=== PATIENT | male | born 1970 | race Caucasian/White ===

== ENCOUNTER 2022-08-01 10:24 | Inpatient (IN) ==
[2022-08-01] MEDS ORDERED: 0.9 % SODIUM CHLORIDE 1,000 ML IV ONE ×2 (10:47→12:27)
[2022-08-01] MEDS ORDERED: ONDANSETRON 4 MG/2 ML VIAL IV ONE (10:51)
[2022-08-01] MEDS ORDERED: morphine 4 MG/ML VIAL IV ONE (10:51)
--- NOTE | 2022-08-01 10:51 | Emergency Department Note ---
Wound/Laceration HIP General Chief Complaint: Wound/Laceration Stated Complaint: Pain and wounds on leg Time Seen by Provider: 08/01/22 10:36 Source: patient Mode of arrival: wheelchair Limitations: no limitations History of Present Illness HPI Narrative: Narrative: This is a 51-year-old male who is noncompliant with his diabetes with a history of lower extremity wounds presenting to the emergency department with complaints of a new wounds to his lower extremities. He reports that these wounds started about 3 weeks ago and have been getting worse. He has a painful swollen left second toe that has been draining some bloody purulence starting yesterday. There is also some ulcers with eschars on his right lower leg. He reports that he is been feeling hot and sometimes has a little sweats but he denies chills no nausea or vomiting. He does take metformin but does not take his blood sugar very often any reports he can he remember the last time he took it. He denies headache, chest pain, shortness of breath, abdominal pain, nausea vomiting diarrhea dysuria urinary frequency or urgency. Related Data Previous Rx's Medication Instructions Recorded metformin 500 mg tablet 500 mg PO QDAY #30 tabs 01/20/22 Allergies Allergy/AdvReac Type Severity Reaction Status Date / Time colchicine AdvReac Abdominal Verified 08/01/22 10:29 Pain Review of Systems ROS ROS Narrative: Narrative: All systems ED: reviewed and negative except as stated. [facility] Narrative Patient History Narrative: Narrative: Medical/Surgical/Family History All Active Problems (Updated 08/01/22 @ 22:17 by Eze Reyes PA-C) Methamphetamine abuse (Acute) Uncontrolled type 2 diabetes mellitus (Acute) Diabetic foot ulcer associated with type 2 diabetes mellitus (Acute) Osteomyelitis of toe of left foot (Acute) Acute gout of left wrist (Acute) Perineal cyst in male (Acute) Infected sebaceous cyst (Acute) Abscess of skin or subcutaneous tissue (Acute) Sepsis (Acute) Cellulitis of neck (Acute) Hyperosmolar hyperglycemic state (HHS) (Acute) Cellulitis of neck (Acute) Morbid obesity (Acute) Gout attack (Acute) Sleep apnea (Chronic) Polyarticular gout (Chronic) Medical History Abdominal pain Gout attack Gout of right elbow Gout of right elbow Gout of right knee Gout of right knee Polyarticular gout Sleep apnea Tophi Ulcer Wrist pain Surgical History History of knee surgery Right x 3 History of laparoscopic cholecystectomy 07/31/2018 Family History Grandfather , Age 60 Esophageal cancer Grandfather Cancer Heart disease Father COPD (chronic obstructive pulmonary disease) Father , Age 66 Congestive heart failure Social History Smoking Status: Current every day smoker Alcohol Intake Frequency: does not drink Substance Use: does not use Exam Narrative Narrative: Narrative: General: Alert, in no acute distress Head: No trauma normocephalic Eyes: PERRLA, EOMs intact no scleral icterus or scleral injection Neck: Full range of motion, no midline tenderness ENT: Moist mucous membranes, uvula is midline. No sign of peritonsillar abscess or Desirae's angina. Cardiovascular: Regular rate and rhythm no murmur Respiratory: Clear to auscultation bilaterally. No rhonchi rales or wheezes, no respiratory distress Abdomen pelvis: Abdomen is soft and nontender to palpation. There is no guarding no rebound tenderness. Negative Torres sign. No tenderness over McBurney's point. Neuro: Patient is alert and oriented x3 Psych: Normal affect, normal mood Right lower extremity there are ulcers with eschars approximately 4 cm x 2 cm each. There is minimal to no surrounding erythema. They are tender to touch. No purulence. Left lower extremity: The left second digit is a bulbous red and swollen. There was some purulence that drained from the lateral aspect it is tender to the touch. General Limitations: no limitations Course Vital Signs Vital signs: Vital Signs Temperature 98.1 F 08/01/22 10:27 Pulse Rate 112 H 08/01/22 10:27 Respiratory Rate 18 08/01/22 10:27 Blood Pressure 138/81 08/01/22 10:27 Pulse Oximetry (%) 100 08/01/22 10:27 Oxygen Delivery Method Room Air 08/01/22 10:27 Temperature 97.7 F 08/01/22 19:18 Pulse Rate 83 08/01/22 19:18 Respiratory Rate 18 08/01/22 19:18 Blood Pressure 112/74 08/01/22 19:18 Pulse Oximetry (%) 99 08/01/22 19:18 Oxygen Delivery Method Room Air 08/01/22 19:18 MDM MDM Narrative Medical decision making narrative: Narrative: Differential diagnosis: Cellulitis, diabetic foot ulcer, osteomyelitis, sepsis Independent lab ordered and reviewed by me: CBC no leukocytosis or anemia. There is mild elevated number of granulocytes Chem-8 pseudohyponatremia with a glucose of 676 Hepatic panel reviewed Venous blood gas mildly acidotic Lactic acid 3.9 Blood cultures x2 pending Procalcitonin is 0.10 Left foot x-ray complete to evaluate for osteomyelitis shows a complete erosion of the distal second phalanx consistent with osteomyelitis on my read. The radiologist confirmed this and also noted some gas over the first metatarsal head. There is a superficial ulcer over this area on exam. Medications ordered: 1 L of normal saline for hyperglycemia 4 mg IV morphine for pain control 4 mg IV ondansetron for prophylactic nausea control Liter #2 of normal saline for hyperglycemia and possible sepsis ordered I have ordered vancomycin as well as ceftriaxone for osteomyelitis of the left second toe. Disposition decision making I spoke with Dr. Emile Perez the machine tool designer who agrees to consult with the patient with most likely surgery remove that osteolytic toe. I then spoke with the Dr. Courtney the hospitalist who agreed to admit the patient for further evaluation and treatment of osteomyelitis. Lab Data 08/01/22 11:24 Labs: Lab Results 08/01/22 08/01/22 08/01/22 Range/Units 11:02 11:21 11:24 WBC 10.4 (4.5-11.0) K/mcL RBC 5.24 (4.63-6.08) M/mcL Hgb 14.8 (13.7-17.5) g/dL Hct 43.8 (40.1-51.0) % POC Hct 45.0 (41-55) MCV 83.6 (80.0-100.0) fL MCH 28.2 (26.0-34.0) pg MCHC 33.8 (31.0-36.0) g/dL RDW 12.7 (11.5-14.5) % Plt Count 295 (140-440) K/mcL MPV 10.4 (8.8-12.5) fL Immature Gran % (Auto) 2.0 H (0.0-0.5) % Neut % (Auto) 65.3 (38.0-78.0) % Lymph % (Auto) 19.7 (15.5-49.0) % [place] % (Auto) 8.8 (1.0-12.0) % Eos % (Auto) 3.2 (0.0-7.0) % Baso % (Auto) 1.0 (0.0-2.0) % Lymph # (Auto) 2.06 (1.50-4.80) K/mcL [place] # (Auto) 0.92 H (0.10-0.90) K/mcL Eos # (Auto) 0.33 (0.00-0.70) K/mcL Baso # (Auto) 0.10 (0.00-0.30) K/mcL Immature Gran # 0.21 H (0.00-0.05) K/mcl Absolute Neutrophils 6.82 (1.80-8.00) K/mcL PT (11.9-14.5) sec INR (0.9-1.1) ABG Methemoglobin 0.3 L (0.4-1.5) % VBG pH 7.34 (7.32-7.42) U VBG pCO2 47.2 (41.0-51.0) mmHg VBG pO2 27.5 (25.0-40.0) mmHg VBG HCO3 24.7 (24.0-28.0) mmol/L VBG Total CO2 26.1 (25.0-29.0) mmol/L VBG O2 Saturation 50.9 (40.0-70.0) % VBG Base Excess -2 (-2-3) VBG Lactic Acid (0.5-2.0) mmol/L Carboxyhemoglobin 8.0 H (0.0-1.5) % THgb Total Hemoglobin 16.0 (13.5-16.5) gm/Dl POC Sodium 128 L (133-145) POC Potassium 4.8 (3.3-5.1) POC Chloride 93 L (96-108) POC Total CO2 23.0 (22-30) POC BUN 18 (6-20) POC Creatinine 0.7 (0.6-1.2) POC Glucose 676 H* (70-105) POC WB Ioniz Calcium 1.08 L (1.16-1.32) Total Bilirubin (0.1-1.0) mg/dL Direct Bilirubin (0-0.3) mg/dL AST (<40) U/L ALT (<40) U/L Alkaline Phosphatase (39-117) U/L Total Protein (5.9-8.4) gm/dL Albumin (3.2-5.2) gm/dL Globulin (2.2-3.7) gm/dL Beta-Hydroxybutyrate (<0.27) mmol/L Procalcitonin (<0.10) ng/mL Urine Color Urine Appearance (Clear) Urine pH (5.0-9.0) Ur Specific [place] (1.000-1.035) Urine Protein (Negative) mg/dL Urine Glucose (UA) (Negative) mg/dL Urine Ketones (Negative) mg/dL Urine Occult Blood (Negative) [place]ari[place]/mcL Urine Nitrate (Negative) Urine Bilirubin (Negative) mg/dL Urine Urobilinogen mg/dL Ur Leukocyte Esterase (Negative) /uL Urine RBC (0-3) /hpf Urine WBC (0-4) /hpf Ur Squamous Epith Cells (0-4) /hpf Urine Bacteria (0) /hpf Urine Mucus (None) /hpf Ur Culture Indicated? Urine Opiates Screen Ur Oxycodone Screen U Oxycod/Oxymor Confirm Urine Methadone Screen Ur Methadone Confirm Ur Barbiturates Screen Ur Barbiturate Confirm Ur Phencyclidine Scrn Urine PCP Confirm Ur Amphetamines Screen U Benzodiazepines Scrn Ur Benzodiazepine, Qnt Urine Cocaine Screen Urine Cocaine Confirm U Cannabinoids Confirm U Marijuana (THC) Screen 08/01/22 08/01/22 08/01/22 Range/Units 11:24 11:24 11:24 WBC (4.5-11.0) K/mcL RBC (4.63-6.08) M/mcL Hgb (13.7-17.5) g/dL Hct (40.1-51.0) % POC Hct (41-55) MCV (80.0-100.0) fL MCH (26.0-34.0) pg MCHC (31.0-36.0) g/dL RDW (11.5-14.5) % Plt Count (140-440) K/mcL MPV (8.8-12.5) fL Immature Gran % (Auto) (0.0-0.5) % Neut % (Auto) (38.0-78.0) % Lymph % (Auto) (15.5-49.0) % [place] % (Auto) (1.0-12.0) % Eos % (Auto) (0.0-7.0) % Baso % (Auto) (0.0-2.0) % Lymph # (Auto) (1.50-4.80) K/mcL [place] # (Auto) (0.10-0.90) K/mcL Eos # (Auto) (0.00-0.70) K/mcL Baso # (Auto) (0.00-0.30) K/mcL Immature Gran # (0.00-0.05) K/mcl Absolute Neutrophils (1.80-8.00) K/mcL PT (11.9-14.5) sec INR (0.9-1.1) ABG Methemoglobin (0.4-1.5) % VBG pH (7.32-7.42) U VBG pCO2 (41.0-51.0) mmHg VBG pO2 (25.0-40.0) mmHg VBG HCO3 (24.0-28.0) mmol/L VBG Total CO2 (25.0-29.0) mmol/L VBG O2 Saturation (40.0-70.0) % VBG Base Excess (-2-3) VBG Lactic Acid 3.9 H* (0.5-2.0) mmol/L Carboxyhemoglobin (0.0-1.5) % THgb Total Hemoglobin (13.5-16.5) gm/Dl POC Sodium (133-145) POC Potassium (3.3-5.1) POC Chloride (96-108) POC Total CO2 (22-30) POC BUN (6-20) POC Creatinine (0.6-1.2) POC Glucose (70-105) POC WB Ioniz Calcium (1.16-1.32) Total Bilirubin 0.5 (0.1-1.0) mg/dL Direct Bilirubin < 0.2 (0-0.3) mg/dL AST 14 (<40) U/L ALT 17 (<40) U/L Alkaline Phosphatase 113 (39-117) U/L Total Protein 7.4 (5.9-8.4) gm/dL Albumin 3.5 (3.2-5.2) gm/dL Globulin 3.9 H (2.2-3.7) gm/dL Beta-Hydroxybutyrate (<0.27) mmol/L Procalcitonin 0.10 H (<0.10) ng/mL Urine Color Urine Appearance (Clear) Urine pH (5.0-9.0) Ur Specific [place] (1.000-1.035) Urine Protein (Negative) mg/dL Urine Glucose (UA) (Negative) mg/dL Urine Ketones (Negative) mg/dL Urine Occult Blood (Negative) [place]/mcL Urine Nitrate (Negative) Urine Bilirubin (Negative) mg/dL Urine Urobilinogen mg/dL Ur Leukocyte Esterase (Negative) /uL Urine RBC (0-3) /hpf Urine WBC (0-4) /hpf Ur Squamous Epith Cells (0-4) /hpf Urine Bacteria (0) /hpf Urine Mucus (None) /hpf Ur Culture Indicated? Urine Opiates Screen Ur Oxycodone Screen U Oxycod/Oxymor Confirm Urine Methadone Screen Ur Methadone Confirm Ur Barbiturates Screen Ur Barbiturate Confirm Ur Phencyclidine Scrn Urine PCP Confirm Ur Amphetamines Screen U Benzodiazepines Scrn Ur Benzodiazepine, Qnt Urine Cocaine Screen Urine Cocaine Confirm U Cannabinoids Confirm U Marijuana (THC) Screen 08/01/22 08/01/22 08/01/22 Range/Units 11:24 11:24 15:00 WBC (4.5-11.0) K/mcL RBC (4.63-6.08) M/mcL Hgb (13.7-17.5) g/dL Hct (40.1-51.0) % POC Hct (41-55) MCV (80.0-100.0) fL MCH (26.0-34.0) pg MCHC (31.0-36.0) g/dL RDW (11.5-14.5) % Plt Count (140-440) K/mcL MPV (8.8-12.5) fL Immature Gran % (Auto) (0.0-0.5) % Neut % (Auto) (38.0-78.0) % Lymph % (Auto) (15.5-49.0) % [place] % (Auto) (1.0-12.0) % Eos % (Auto) (0.0-7.0) % Baso % (Auto) (0.0-2.0) % Lymph # (Auto) (1.50-4.80) K/mcL [place] # (Auto) (0.10-0.90) K/mcL Eos # (Auto) (0.00-0.70) K/mcL Baso # (Auto) (0.00-0.30) K/mcL Immature Gran # (0.00-0.05) K/mcl Absolute Neutrophils (1.80-8.00) K/mcL PT 13.3 (11.9-14.5) sec INR 1.0 (0.9-1.1) ABG Methemoglobin (0.4-1.5) % VBG pH (7.32-7.42) U VBG pCO2 (41.0-51.0) mmHg VBG pO2 (25.0-40.0) mmHg VBG HCO3 (24.0-28.0) mmol/L VBG Total CO2 (25.0-29.0) mmol/L VBG O2 Saturation (40.0-70.0) % VBG Base Excess (-2-3) VBG Lactic Acid (0.5-2.0) mmol/L Carboxyhemoglobin (0.0-1.5) % THgb Total Hemoglobin (13.5-16.5) gm/Dl POC Sodium (133-145) POC Potassium (3.3-5.1) POC Chloride (96-108) POC Total CO2 (22-30) POC BUN (6-20) POC Creatinine (0.6-1.2) POC Glucose (70-105) POC WB Ioniz Calcium (1.16-1.32) Total Bilirubin (0.1-1.0) mg/dL Direct Bilirubin (0-0.3) mg/dL AST (<40) U/L ALT (<40) U/L Alkaline Phosphatase (39-117) U/L Total Protein (5.9-8.4) gm/dL Albumin (3.2-5.2) gm/dL Globulin (2.2-3.7) gm/dL Beta-Hydroxybutyrate 0.13 (<0.27) mmol/L Procalcitonin (<0.10) ng/mL Urine Color Lt. yellow Urine Appearance Clear (Clear) Urine pH 5.5 (5.0-9.0) Ur Specific [place] 1.010 (1.000-1.035) Urine Protein Negative (Negative) mg/dL Urine Glucose (UA) >=1000 A (Negative) mg/dL Urine Ketones Negative (Negative) mg/dL Urine Occult Blood Small A (Negative) [place]/mcL Urine Nitrate Negative (Negative) Urine Bilirubin Negative (Negative) mg/dL Urine Urobilinogen Normal mg/dL Ur Leukocyte Esterase Negative (Negative) /uL Urine RBC 1 (0-3) /hpf Urine WBC 0 (0-4) /hpf Ur Squamous Epith Cells 0 (0-4) /hpf Urine Bacteria None (0) /hpf Urine Mucus Few A (None) /hpf Ur Culture Indicated? No Urine Opiates Screen Ur Oxycodone Screen U Oxycod/Oxymor Confirm Urine Methadone Screen Ur Methadone Confirm Ur Barbiturates Screen Ur Barbiturate Confirm Ur Phencyclidine Scrn Urine PCP Confirm Ur Amphetamines Screen U Benzodiazepines Scrn Ur Benzodiazepine, Qnt Urine Cocaine Screen Urine Cocaine Confirm U Cannabinoids Confirm U Marijuana (THC) Screen 08/01/22 Range/Units 15:00 WBC (4.5-11.0) K/mcL RBC (4.63-6.08) M/mcL Hgb (13.7-17.5) g/dL Hct (40.1-51.0) % POC Hct (41-55) MCV (80.0-100.0) fL MCH (26.0-34.0) pg MCHC (31.0-36.0) g/dL RDW (11.5-14.5) % Plt Count (140-440) K/mcL MPV (8.8-12.5) fL Immature Gran % (Auto) (0.0-0.5) % Neut % (Auto) (38.0-78.0) % Lymph % (Auto) (15.5-49.0) % [place] % (Auto) (1.0-12.0) % Eos % (Auto) (0.0-7.0) % Baso % (Auto) (0.0-2.0) % Lymph # (Auto) (1.50-4.80) K/mcL [place] # (Auto) (0.10-0.90) K/mcL Eos # (Auto) (0.00-0.70) K/mcL Baso # (Auto) (0.00-0.30) K/mcL Immature Gran # (0.00-0.05) K/mcl Absolute Neutrophils (1.80-8.00) K/mcL PT (11.9-14.5) sec INR (0.9-1.1) ABG Methemoglobin (0.4-1.5) % VBG pH (7.32-7.42) U VBG pCO2 (41.0-51.0) mmHg VBG pO2 (25.0-40.0) mmHg VBG HCO3 (24.0-28.0) mmol/L VBG Total CO2 (25.0-29.0) mmol/L VBG O2 Saturation (40.0-70.0) % VBG Base Excess (-2-3) VBG Lactic Acid (0.5-2.0) mmol/L Carboxyhemoglobin (0.0-1.5) % THgb Total Hemoglobin (13.5-16.5) gm/Dl POC Sodium (133-145) POC Potassium (3.3-5.1) POC Chloride (96-108) POC Total CO2 (22-30) POC BUN (6-20) POC Creatinine (0.6-1.2) POC Glucose (70-105) POC WB Ioniz Calcium (1.16-1.32) Total Bilirubin (0.1-1.0) mg/dL Direct Bilirubin (0-0.3) mg/dL AST (<40) U/L ALT (<40) U/L Alkaline Phosphatase (39-117) U/L Total Protein (5.9-8.4) gm/dL Albumin (3.2-5.2) gm/dL Globulin (2.2-3.7) gm/dL Beta-Hydroxybutyrate (<0.27) mmol/L Procalcitonin (<0.10) ng/mL Urine Color Urine Appearance (Clear) Urine pH (5.0-9.0) Ur Specific [place] (1.000-1.035) Urine Protein (Negative) mg/dL Urine Glucose (UA) (Negative) mg/dL Urine Ketones (Negative) mg/dL Urine Occult Blood (Negative) [place]/mcL Urine Nitrate (Negative) Urine Bilirubin (Negative) mg/dL Urine Urobilinogen mg/dL Ur Leukocyte Esterase (Negative) /uL Urine RBC (0-3) /hpf Urine WBC (0-4) /hpf Ur Squamous Epith Cells (0-4) /hpf Urine Bacteria (0) /hpf Urine Mucus (None) /hpf Ur Culture Indicated? Urine Opiates Screen Suspect positive A Ur Oxycodone Screen None detected U Oxycod/Oxymor Confirm TNP Urine Methadone Screen None detected Ur Methadone Confirm TNP Ur Barbiturates Screen None detected Ur Barbiturate Confirm TNP Ur Phencyclidine Scrn None detected Urine PCP Confirm TNP Ur Amphetamines Screen Suspect positive A U Benzodiazepines Scrn None detected Ur Benzodiazepine, Qnt TNP Urine Cocaine Screen None detected Urine Cocaine Confirm TNP U Cannabinoids Confirm TNP U Marijuana (THC) Screen None detected EKG Data EKG #1: EKG results narrative: ECG shows normal sinus rhythm, normal axis, normal [place] interval narrow QRS normal QTC. There is no signs of Brugada, [id number] or HOCM. There is no dagger Q waves. There is no ST segment deviation or hyperacute T waves. My interpretation is normal sinus rhythm. Discharge Plan Patient/Caregiver Discharge Instructions Pt seen by LIGHTING ENGINEER/PA only: Yes Clinical Impression: Osteomyelitis of toe of left foot Patient Disposition: Xfer As Inpt ([facility]) Discharge Date/Time: 08/01/22 15:39
[2022-08-01 11:26] LABS: POC Calcium, Ionized 1.08 (1.16-1.32); POC Creatinine 0.7 (0.6-1.2); POC Potassium 4.8 (3.3-5.1)
--- NOTE | 2022-08-01 11:36 | XRay Report ---
HISTORY: Cellulitis versus osteomyelitis left second toe, diabetes, gout FINDINGS: There is near complete destruction with erosion of the distal phalanx of the second toe. There is significant overlying soft tissue swelling. The distal interphalangeal joint is normal. The middle and proximal phalanges are normal. There is a moderate hallux valgus deformity at the first metatarsal phalangeal joint with associated spur formation. There is soft tissue swelling medial to the head of the first metatarsal and there is a small bubble of air in a region of soft tissue thickening. There is no bone erosion or periosteal elevation. IMPRESSION: Severe osteomyelitis with near complete destruction of the distal phalanx of the second toe. Soft tissue swelling with gas beneath the skin adjacent to the head of the first metatarsal. This may be due to open wound. There is no associated osteomyelitis. Interpreted and Authenticated by: Luis Ames 08/01/22
[2022-08-01 11:39] LABS: ABG Methemoglobin 0.3 % (0.4-1.5); VBG Base Excess -2 (-2-3); VBG HCO3 24.7 mmol/L (24.0-28.0); VBG Oxygen Saturation 50.9 % (40.0-70.0); VBG PCO2 47.2 mmHg (41.0-51.0); VBG PH 7.34 U (7.32-7.42); VBG PO2 27.5 mmHg (25.0-40.0); VBG Total CO2 26.1 mmol/L (25.0-29.0)
[2022-08-01 11:57] LABS: Eosinophils # (Auto) 0.33 K/mcL (0.00-0.70); Eosinophils % (Auto) 3.2 % (0.0-7.0); Hematocrit 43.8 % (40.1-51.0); Hemoglobin 14.8 g/dL (13.7-17.5); Lymphocytes # (Auto) 2.06 K/mcL (1.50-4.80); Lymphocytes % (Auto) 19.7 % (15.5-49.0); Mean Cell Volume 83.6 fL (80.0-100.0); Mean Corpuscular HGB Conc 33.8 g/dL (31.0-36.0); Mean Platelet Volume 10.4 fL (8.8-12.5); Monocytes # (Auto) 0.92 K/mcL (0.10-0.90); Monocytes % (Auto) 8.8 % (1.0-12.0); Neutrophils % (Auto) 65.3 % (38.0-78.0); Platelet Count 295 K/mcL (140-440); RBC 5.24 M/mcL (4.63-6.08); Red Cell Distribution Width 12.7 % (11.5-14.5); WBC 10.4 K/mcL (4.5-11.0)
[2022-08-01] MEDS ORDERED: VANCOMYCIN 2,000 MG in 0.9 % SODIUM CHLORIDE 500 ML IV ONE (11:58)
[2022-08-01] MEDS ORDERED: cefTRIAXone 2 GM in DEXTROSE 5% IN WATER 50 ML IV ONE (12:00)
[2022-08-01] MEDS: HYDROmorphone 0.5 MG/0.5 ML SYRINGE IV PRN ×3 (12:23→17:06)
[2022-08-01 12:29] LABS: ALT/SGPT 17 U/L (<40); AST/SGOT 14 U/L (<40); Albumin 3.5 gm/dL (3.2-5.2); Alkaline Phosphatase 113 U/L (39-117); Bilirubin,Direct < 0.2 mg/dL (0-0.3); Bilirubin,Total 0.5 mg/dL (0.1-1.0); Globulin 3.9 gm/dL (2.2-3.7)
--- NOTE | 2022-08-01 14:15 | Orthopedic Consult Note ---
HPI Date of Consult Consult Date: 08/01/22 Requesting physician: Eze Reyes Primary Care Provider: PCP No Consult Narrative Patient Information: Note initiated : 08/01/22 at 2:12 pm Service Date, if different from initiated Date: [] Patient: Sean Mcdonald 51 y/o M admitted on for Pain and wounds on leg. Chief Complaint: [left second toe infection] Presents with a increasing infection to the left second toe. He has been peeling some callus skin off of it from between the distal tip of the second toe and the third toe. He has not had a severe infection of this area prior. This area is about as large as his great toe. He does have some pain to the area. His diabetes is out of control. Chief complaint: left second toe infection Reason for consult: left second toe infection cc:: CC: PFSH PFSH All Active Problems (Updated 08/01/22 @ 14:19 by Les Perez DPM) Osteomyelitis of toe of left foot (Acute) Acute gout of left wrist (Acute) Perineal cyst in male (Acute) Infected sebaceous cyst (Acute) Abscess of skin or subcutaneous tissue (Acute) Sepsis (Acute) Cellulitis of neck (Acute) Hyperosmolar hyperglycemic state (HHS) (Acute) Cellulitis of neck (Acute) Morbid obesity (Acute) Gout attack (Acute) Sleep apnea (Chronic) Polyarticular gout (Chronic) Medical History Abdominal pain Gout attack Gout of right elbow Gout of right elbow Gout of right knee Gout of right knee Polyarticular gout Sleep apnea Tophi Ulcer Wrist pain Surgical History History of knee surgery Right x 3 History of laparoscopic cholecystectomy 07/31/2018 Family History Grandfather , Age 60 Esophageal cancer Grandfather Cancer Heart disease Father COPD (chronic obstructive pulmonary disease) Father , Age 66 Congestive heart failure Social History (Updated 07/26/19 @ 07:42 by Cris Arnett PA-C) smoking status: Current every day smoker alcohol intake frequency: does not drink substance use type: does not use MEDS/ALLERGIES Home Medications and Allergies Home Medications Medication Instructions Recorded Confirmed Type metformin 500 mg tablet 500 mg PO QDAY #30 tabs 01/20/22 Rx Allergies Allergy/AdvReac Type Severity Reaction Status Date / Time colchicine AdvReac Abdominal Verified 08/01/22 10:29 Pain Physical Examination Narrative Narrative: Narrative: Ankle & Foot left: Ankle appearance: other (left second toe swelling, drainage and ulceration; malodorous) A/P Assessment and plan (1) Osteomyelitis of toe of left foot: Status: Acute Plan amputation of left second toe Sepsis Sepsis Identified: No Narrative A/P Narrative: amputation of left second toe Plan of Treatment: Amputation at the metatarsal phalangeal joint of the left second digit Intravenous antibiotic therapy for 4 to 6 weeks post surgical. Time Spent With Patient Time: Total time spent is greater than 50% in coordination of care (as documented) at patient's floor/unit and/or counseling patient: Critical Care Time: No
--- NOTE | 2022-08-01 14:50 | Internal Med History&Physical ---
HPI History of Present Illness Patient information: Note initiated : 08/01/22 at 2:40 pm Service Date, if different from initiated Date: [] Patient: Sean Mcdonald a 51 y/o M admitted on for Left 2nd Toe Amputation. Chief Complaint: [Left 2nd toe swelling and pain ] Chief complaint: Left 2nd toe swelling and pain History of present illness: Mr. Mcdonald is a 51 year old M history of type 2 diabetes mellitus, IV drug u se including methamphetamine, presenting with 3 to 4 weeks history of worsening left second toe swelling and pain. He also has noticed to continue swelling around the posterior aspect of his right lower leg as well. He does not remember having any associated trauma or injury or cut or puncture to any of those affected areas. He admits that he used IV drug use including methamphetamine with last use yesterday. He has a history of type 2 diabetes mellitus and is supposed to take metformin but he never takes it because he does not feel like it. Labs today significant for lack of leukocytosis with WBC 10.4. Blood glucose 676, serum bicarb 23, anion gap of 12, serum beta hydroxybutyrate pending. Lactic acid 3.9, procalcitonin level 0.10. MRSA screen pending. Foot x-ray showing severe osteomyelitis with near complete destruction of the distal phalanx of the second left toe. Admission request is called for diabetic foot with osteomyelitis of the left second toe with unstageable ulcer of the right lower leg. They were complicated by uncontrolled type 2 diabetes mellitus with hypercalcemia. Constitutional Constitutional: Absent chills, excessive sweating, fatigue, fever(s) or weakness EENT Eyes: Absent blurry vision, change in vision, loss of vision or other visual disturbances Ears: Absent decreased hearing or tinnitus Nose, mouth and throat: Absent abnormal hearing, dry mouth, headache(s), nasal congestion or sore throat Cardiovascular Cardiovascular: Absent chest pain, chest pain at rest, edema, irregular heart rhythm or palpatations Respiratory Respiratory: Absent cough, dyspnea or wheezing Gastrointestinal Gastrointestinal: Absent abdominal pain, constipation, diarrhea, nausea or vomiting Musculoskeletal Musculoskeletal: Present as per HPI, arthralgias, deformity and myalgias; Absent back pain, limited range of motion, muscle cramps, muscle weakness or numbness Integumentary Integumentary: Present lesions, new lesions and wounds; Absent rash Neurological Neurological: Absent focal weakness, headache(s) or numbness Psychiatric Psychiatric: Absent anxiety, depression or hallucinations PFSH PFSH All Active Problems (Updated 08/01/22 @ 14:48 by Robb Courtney MD) Methamphetamine abuse (Acute) Uncontrolled type 2 diabetes mellitus (Acute) Diabetic foot ulcer associated with type 2 diabetes mellitus (Acute) Osteomyelitis of toe of left foot (Acute) Acute gout of left wrist (Acute) Perineal cyst in male (Acute) Infected sebaceous cyst (Acute) Abscess of skin or subcutaneous tissue (Acute) Sepsis (Acute) Cellulitis of neck (Acute) Hyperosmolar hyperglycemic state (HHS) (Acute) Cellulitis of neck (Acute) Morbid obesity (Acute) Gout attack (Acute) Sleep apnea (Chronic) Polyarticular gout (Chronic) Medical History Abdominal pain Gout attack Gout of right elbow Gout of right elbow Gout of right knee Gout of right knee Polyarticular gout Sleep apnea Tophi Ulcer Wrist pain Surgical History History of knee surgery Right x 3 History of laparoscopic cholecystectomy 07/31/2018 Family History Grandfather , Age 60 Esophageal cancer Grandfather Cancer Heart disease Father COPD (chronic obstructive pulmonary disease) Father , Age 66 Congestive heart failure Social History (Updated 07/26/19 @ 07:42 by Cris Arnett PA-C) smoking status: Current every day smoker alcohol intake frequency: does not drink substance use type: does not use MEDS/ALLERGIES Home Medications and Allergies Home Medications Medication Instructions Recorded Confirmed Type metformin 500 mg tablet 500 mg PO QDAY #30 tabs 01/20/22 Rx Allergies Allergy/AdvReac Type Severity Reaction Status Date / Time colchicine AdvReac Abdominal Verified 08/01/22 10:29 Pain EXAM Constitutional Vitals: Temp Pulse Resp BP Pulse Ox O2 Del Method 36.7 C 101 H 18 114/69 93 Room Air 08/01/22 10:27 08/01/22 13:32 08/01/22 10:27 08/01/22 14:02 08/01/22 13:32 08/01/22 10:27 General appearance: cooperative and no acute distress Head Head exam: Present atraumatic and normocephalic Eye Eye exam: Present EOMI and PERRL ENT ENT exam: Present mucous membranes moist, normal exam and normal external ear exam Neck Neck exam: Present normal inspection; Absent lymphadenopathy, tenderness or t hyromegaly Respiratory Respiratory exam: Absent accessory muscle use, respiratory distress or wheezes Cardiovascular Cardiovascular exam: Present normal rate and rhythm; Absent JVD GI/Abdominal GI/Abdominal exam: Present normal bowel sounds and soft; Absent organomegaly or tenderness Rectal Rectal exam: Present deferred Extremities Exam Extremities exam: Present full ROM, normal capillary refill and tenderness; Absent normal inspection Additional comments: Swelling, erythema, tenderness, warmth, drainage of the left 2nd toe. Unstageable ulcers with eschar posterior aspect of right lower leg Neurological Exam Neurological exam: Present alert, CN II-XII intact and oriented X3; Absent motor sensory deficit Psychiatric Psychiatric exam: Present normal affect and normal mood; Absent anxious or depressed Skin Skin exam: Present dry and erythema; Absent intact Additional comments: Swelling, erythema, tenderness, warmth, drainage of the left 2nd toe. Unstageable ulcers with eschar posterior aspect of right lower leg DATA Data Completed and Pending Labs: Labs from last 24 hours 08/01/22 08/01/22 08/01/22 11:24 11:24 11:24 WBC RBC Hgb Hct POC Hct MCV MCH MCHC RDW Plt Count MPV Immature Gran % (Auto) Neut % (Auto) Lymph % (Auto) [place] % (Auto) Eos % (Auto) Baso % (Auto) Lymph # (Auto) [place] # (Auto) Eos # (Auto) Baso # (Auto) Immature Gran # Absolute Neutrophils PT Pending INR Pending ABG Methemoglobin VBG pH VBG pCO2 VBG pO2 VBG HCO3 VBG Total CO2 VBG O2 Saturation VBG Base Excess VBG Lactic Acid Carboxyhemoglobin Total Hemoglobin POC Sodium POC Potassium POC Chloride POC Total CO2 POC BUN POC Creatinine POC Glucose POC WB Ioniz Calcium Total Bilirubin Direct Bilirubin AST ALT Alkaline Phosphatase Total Protein Albumin Globulin Beta-Hydroxybutyrate Pending Procalcitonin 0.10 H 08/01/22 08/01/22 08/01/22 11:24 11:24 11:24 WBC 10.4 RBC 5.24 Hgb 14.8 Hct 43.8 POC Hct MCV 83.6 MCH 28.2 MCHC 33.8 RDW 12.7 Plt Count 295 MPV 10.4 Immature Gran % (Auto) 2.0 H Neut % (Auto) 65.3 Lymph % (Auto) 19.7 [place] % (Auto) 8.8 Eos % (Auto) 3.2 Baso % (Auto) 1.0 Lymph # (Auto) 2.06 [place] # (Auto) 0.92 H Eos # (Auto) 0.33 Baso # (Auto) 0.10 Immature Gran # 0.21 H Absolute Neutrophils 6.82 PT INR ABG Methemoglobin VBG pH VBG pCO2 VBG pO2 VBG HCO3 VBG Total CO2 VBG O2 Saturation VBG Base Excess VBG Lactic Acid 3.9 H* Carboxyhemoglobin Total Hemoglobin POC Sodium POC Potassium POC Chloride POC Total CO2 POC BUN POC Creatinine POC Glucose POC WB Ioniz Calcium Total Bilirubin 0.5 Direct Bilirubin < 0.2 AST 14 ALT 17 Alkaline Phosphatase 113 Total Protein 7.4 Albumin 3.5 Globulin 3.9 H Beta-Hydroxybutyrate Procalcitonin 08/01/22 08/01/22 11:21 11:02 WBC RBC Hgb Hct POC Hct 45.0 MCV MCH MCHC RDW Plt Count MPV Immature Gran % (Auto) Neut % (Auto) Lymph % (Auto) [place] % (Auto) Eos % (Auto) Baso % (Auto) Lymph # (Auto) [place] # (Auto) Eos # (Auto) Baso # (Auto) Immature Gran # Absolute Neutrophils PT INR ABG Methemoglobin 0.3 L VBG pH 7.34 VBG pCO2 47.2 VBG pO2 27.5 VBG HCO3 24.7 VBG Total CO2 26.1 VBG O2 Saturation 50.9 VBG Base Excess -2 VBG Lactic Acid Carboxyhemoglobin 8.0 H Total Hemoglobin 16.0 POC Sodium 128 L POC Potassium 4.8 POC Chloride 93 L POC Total CO2 23.0 POC BUN 18 POC Creatinine 0.7 POC Glucose 676 H* POC WB Ioniz Calcium 1.08 L Total Bilirubin Direct Bilirubin AST ALT Alkaline Phosphatase Total Protein Albumin Globulin Beta-Hydroxybutyrate Procalcitonin A/P Assessment and plan (1) Osteomyelitis of toe of left foot: Status: Acute (2) Diabetic foot ulcer associated with type 2 diabetes mellitus: Status: Acute (3) Uncontrolled type 2 diabetes mellitus: Status: Acute (4) Methamphetamine abuse: Status: Acute Sepsis Sepsis Identified: No Narrative A/P Narrative: Assessment and Plans: 1. Diabetic foot ulcer with osteomyelitis, left 2nd toe: Inpatient med surg Dr. Perez consulted for surgical management NPO with NS@100cc/hr Serial lactic acid Procalcitonin level MRSA screening Blood culture Intra-operative wound culture cbc w/ auto diff in the morning to trend WBC Vancomycin Zosyn Tylenol Oxycodone Dilaudid Physical therapy 2. Right posterior lower leg unstageable ulcers: Dr. Perez consulted for surgical management Rest of the management, please see above #1 3. Uncontrolled T2DM with hyperglycemia: HgA1c Hold metformin Insulin Lispro SSI q6hr Insulin Lantus 10 unit HS Hypoglycemia protocol NPO with NS@100cc/hr, resume CC diet after surgery para educator referral 4. Methamphetamine abuse: Urine drug screen GI ppx: not currently indicated DVT ppx: SCDs for now pre-operatively Code status: Full Prognosis: guarded Disposition: inpatient med surg; PT Time Spent With Patient Time: Total time spent is greater than 50% in coordination of care (as documented) at patient's floor/unit and/or counseling patient: Initial: Total time with patient: 55 - 74 minutes
--- NOTE | 2022-08-01 14:56 | XRay Report ---
HISTORY: Preop for wound debridement FINDINGS: The lungs are clear and well expanded. The heart size, mediastinum, sandi, pleura and bones are normal. There has been no significant change since 10/08/18 IMPRESSION: Normal exam Interpreted and Authenticated by: Luis Ames 08/01/22
[2022-08-01] MEDS ORDERED: DEXTROSE 31 GM ORAL.SUSP PO PRN (16:03)
[2022-08-01] MEDS ORDERED: ACETAMINOPHEN 325 MG TABLET PO PRN (16:03)
[2022-08-01] MEDS ORDERED: VANCOMYCIN PER PHARMACY IV SCH (16:03)
[2022-08-01] MEDS ORDERED: DEXTROSE 50% 50 ML VIAL IV PRN (16:03)
[2022-08-01] MEDS ORDERED: IPRATROPIUM/ALBUTEROL 3 ML AMPUL.NEB NEB PRN (16:03)
[2022-08-01] MEDS ORDERED: ONDANSETRON 4 MG/2 ML VIAL IV PRN (16:03)
[2022-08-01] MEDS ORDERED: oxyCODONE HCL 5 MG TABLET PO PRN (16:03)
[2022-08-01] MEDS ORDERED: traZODone HCL 50 MG TABLET PO PRN (16:03)
[2022-08-01 16:05] LABS: Appearance,Urine CLEAR (Clear); Bilirubin,Urine NEGATIVE (Negative); Color,Urine LT. YELLOW; Culture Indicated,Urine No; Glucose,Urine (UA) >=1000 mg/dL (Negative); Ketones,Urine NEGATIVE (Negative); Leukocyte Esterase,Urine NEGATIVE /uL (Negative); Mucus,Urine FEW /hpf; Nitrate,Urine NEGATIVE (Negative); PH,Urine 5.5 (5.0-9.0); Protein,Urine NEGATIVE (Negative); Urine Blood SMALL ery/mcL (Negative); Urine RBC 1 /hpf (0-3); Urine Squamous Epithelial Cell 0 /hpf (0-4); Urine WBC 0 /hpf (0-4); Urobilinogen,Urine Normal
[2022-08-01] MEDS: 0.9 % SODIUM CHLORIDE 1,000 ML IV SCH (16:37)
[2022-08-01] MEDS: PIPERACILLIN SODIUM/TAZOBACTAM 3.375 GM in DEXTROSE 5% IN WATER 50 ML IV SCH (17:38)
[2022-08-01 18:03] LABS: Amphetamine Screen,Urine Suspect positive; Barbiturate Screen,Urine None detected; Benzodiazepines Screen,Urine None detected; Cannabinoid Screen,Urine None detected; Cocaine Screen,Urine None detected; Opiate Screen,Urine Suspect Positive; Oxycodone, Urine Screen None detected; Phencyclidine Screen,Urine None detected
[2022-08-01] MEDS: INSULIN LISPRO 1 UNIT/0.01 ML UNIT SQ SCH ×2 (18:32→23:40)
[2022-08-01 18:49] LABS: Beta Hydroxybutyrate 0.13 mmol/L (<0.27)
[2022-08-01 18:57] LABS: Prothrombin Time 13.3 sec (11.9-14.5)
[2022-08-01] MEDS: SENNOSIDES 1 TABLET PO SCH (21:27)
[2022-08-01] MEDS: DOCUSATE SODIUM 100 MG CAPSULE PO SCH (21:27)
[2022-08-01] MEDS: INSULIN GLARGINE, HUMAN 1 UNIT/0.01 ML SQ SCH (21:36)
[2022-08-01] MEDS: 0.9 % SODIUM CHLORIDE 10 ML SYRINGE IV SCH (22:00)
[2022-08-01] MEDS: VANCOMYCIN 1,500 MG in 0.9 % SODIUM CHLORIDE 500 ML IV SCH (23:28)
[2022-08-02] MEDS: PIPERACILLIN SODIUM/TAZOBACTAM 3.375 GM in DEXTROSE 5% IN WATER 50 ML IV SCH ×4 (01:00→18:43)
[2022-08-02] MEDS: 0.9 % SODIUM CHLORIDE 1,000 ML IV SCH ×2 (04:11→15:29)
[2022-08-02] MEDS: INSULIN LISPRO 1 UNIT/0.01 ML UNIT SQ SCH ×3 (06:14→22:15)
[2022-08-02 07:30] LABS: Basophils # (Auto) 0.12 K/mcL (0.00-0.30); Basophils % (Auto) 1.2 % (0.0-2.0); Eosinophils # (Auto) 0.38 K/mcL (0.00-0.70); Eosinophils % (Auto) 3.9 % (0.0-7.0); Hemoglobin 12.9 g/dL (13.7-17.5); Lymphocytes # (Auto) 2.21 K/mcL (1.50-4.80); Lymphocytes % (Auto) 22.8 % (15.5-49.0); Mean Cell Volume 84.3 fL (80.0-100.0); Mean Corpuscular HGB Conc 33.9 g/dL (31.0-36.0); Mean Platelet Volume 10.7 fL (8.8-12.5); Monocytes # (Auto) 0.92 K/mcL (0.10-0.90); Monocytes % (Auto) 9.5 % (1.0-12.0); Neutrophils % (Auto) 60.8 % (38.0-78.0); Platelet Count 292 K/mcL (140-440); RBC 4.51 M/mcL (4.63-6.08); Red Cell Distribution Width 12.8 % (11.5-14.5); WBC 9.7 K/mcL (4.5-11.0)
[2022-08-02 08:24] LABS: ALT/SGPT 17 U/L (<40); AST/SGOT 18 U/L (<40); Albumin 2.8 gm/dL (3.2-5.2); Albumin/Globulin Ratio 0.8 (1.0-2.3); Alkaline Phosphatase 92 U/L (39-117); Bilirubin,Total 0.4 mg/dL (0.1-1.0); Blood Urea Nitrogen 12 mg/dL (6-20); Carbon Dioxide 25 mmol/L (22-30); Chloride 101 mmol/L (96-108); Globulin 3.4 gm/dL (2.2-3.7); Glomerular Filtration Rate 117; Glucose 143 mg/dL (70-105)
[2022-08-02 08:56] LABS: Estimated Average Glucose(eAG) 344 mg/dL; Hemoglobin A1C 13.6 % Hgb (4.0-6.0)
[2022-08-02] MEDS: 0.9 % SODIUM CHLORIDE 10 ML SYRINGE IV SCH ×3 (10:11→22:23)
[2022-08-02] MEDS: DOCUSATE SODIUM 100 MG CAPSULE PO SCH ×2 (10:12→22:24)
--- NOTE | 2022-08-02 10:54 | Internal Med Progress Note ---
SUBJECTIVE Subjective Patient information: Note initiated : 08/02/22 at 10:49 am Service Date, if different from initiated Date: [] Patient: Sean Mcdonald a 51 y/o M admitted on 08/01/22 for Left 2nd Toe Amputation. Chief Complaint: [] Interval history: Mr. Mcdonald is a 51 year old M history of type 2 diabetes mellitus, IV drug use including methamphetamine, presenting with 3 to 4 weeks history of worsening left second toe swelling and pain. He also has noticed to continue swelling around the posterior aspect of his right lower leg as well. He does not remember having any associated trauma or injury or cut or puncture to any of those affected areas. He admits that he used IV drug use including methamphetamine with last use yesterday. He has a history of type 2 diabetes mellitus and is supposed to take metformin but he never takes it because he does not feel like it. Labs today significant for lack of leukocytosis with WBC 10. 4. Blood glucose 676, serum bicarb 23, anion gap of 12, serum beta hydroxybutyrate pending. Lactic acid 3.9, procalcitonin level 0.10. MRSA screen pending. Foot x-ray showing severe osteomyelitis with near complete destruction of the distal phalanx of the second left toe. Admission request is called for diabetic foot with osteomyelitis of the left second toe with unstageable ulcer of the right lower leg. They were complicated by uncontrolled type 2 diabetes mellitus with hypercalcemia. 08/02: Patient has been afebrile overnight. MRSA screening negative. Blood culture no growth to date. WBC 9.7. Fasting glucose 158. A1c 13.6. Urine drug screen positive for opioids and methamphetamine. Patient is drowsy and sleepy this morning. He denies having any left toe pain at the moment. Patient has been n.p.o. 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 We will DC vancomycin while continuing IV fluid, Zosyn, and insulin therapy with Lantus 10 units at bedtime and high-dose sliding scale insulin every 6 hours while n.p.o. and AC HS after the surgery when patient can be fed. Physical therapy evaluation and treatment after surgery. Constitutional Vitals: Vital Signs Temp Pulse Resp BP Pulse Ox O2 Del Method 36.7 C 83 15 117/81 96 Room Air 08/02/22 09:05 08/02/22 09:10 02/24/23 09:05 08/02/22 09:05 08/02/22 09:05 08/02/22 09:05 Period Temp Pulse Resp BP Sys/Matta Pulse Ox O2 Del Method O2 Flow Rate Last 24 Hr 36.5 C-36.8 C 79-116 15-20 102-132/58-109 90-100 Room Air-Room Air Intake and Output 08/01/22 08/02/22 08/02/22 19:59 03:59 11:59 Intake Total 2840 1550 Output Total 1050 1150 Balance 2840 500 -1150 Weight 127.006 kg 128.962 kg Intake & Output: Intake & Output 08/01/22 08/02/22 08/02/22 19:59 03:59 11:59 Intake Total 2840 1550 Output Total 1050 1150 Balance 2840 500 -1150 Weight 127.006 kg 128.962 kg Intake: IV 2600 1550 Sodium Chloride 0.9% 1,000 ml @ 2000 1000 100 mls/hr IV .Q10H [facility] Rx#: [id number] Zosyn 3.375 gm In Dextrose 5% 50 50 in Water 50 ml @ 100 mls/hr IV Q6H [facility] Rx#:[id number] Vancomycin 1,500 mg In Sodium 500 500 Chloride 0.9% 500 ml @ 333.3 mls/hr IV Q12H [facility] Rx#: [id number] Rocephin 2 gm In Dextrose 5% in 50 Water 50 ml @ 100 mls/hr IV ONCE ONE Rx#:[id number] Oral 240 Output: Void Amount 1050 1150 Other: Meal Dinner Percent of Meal Consumed 100% Feeding Ability Independent Urine Appearance Clear Clear Urine Color Yellow Light Miladis Urine Odor Normal Normal General appearance: cooperative, disheveled and obese Exam: drowsy Head Head exam: Present atraumatic and normal inspection Eye Eye exam: Present normal appearance ENT ENT exam: Present mucous membranes moist, normal exam and normal external ear exam Neck Neck exam: Present normal inspection Respiratory Respiratory exam: Present normal respiratory exam Cardiovascular Cardiovascular exam: Present normal rate and rhythm GI/Abdominal GI/Abdominal exam: Present normal bowel sounds Extremities Exam Extremities exam: Present tenderness; Absent normal inspection Additional comments: Swelling, erythema, tenderness, warmth, drainage of the left 2nd toe. Unstageable ulcers with eschar posterior aspect of right lower leg Back Exam Back exam: Present normal inspection Neurological Exam Neurological exam: Present alert and oriented X3 Skin Skin exam: Present warm; Absent intact Additional comments: Swelling, erythema, tenderness, warmth, drainage of the left 2nd toe. Unstageable ulcers with eschar posterior aspect of right lower leg OBJ DATA Labs 08/02/22 05:51 08/02/22 05:51 Labs: Abnormal Lab Results 08/02/22 08/02/22 08/01/22 05:51 05:51 15:00 RBC 4.51 L Hgb 12.9 L Hct 38.0 L Immature Gran % (Auto) 1.8 H [place] # (Auto) 0.92 H Immature Gran # 0.17 H ABG Methemoglobin VBG Lactic Acid Carboxyhemoglobin POC Sodium POC Chloride Creatinine 0.6 L Glucose 143 H POC Glucose Hemoglobin A1c 13.6 H Calcium 8.0 L POC WB Ioniz Calcium Albumin 2.8 L Globulin Albumin/Globulin Ratio 0.8 L Procalcitonin Urine Glucose (UA) Urine Occult Blood Urine Mucus Urine Opiates Screen Suspect positive A Ur Amphetamines Screen Suspect positive A 08/01/22 08/01/22 08/01/22 15:00 11:24 11:24 RBC Hgb Hct Immature Gran % (Auto) [place] # (Auto) Immature Gran # ABG Methemoglobin VBG Lactic Acid 3.9 H* Carboxyhemoglobin POC Sodium POC Chloride Creatinine Glucose POC Glucose Hemoglobin A1c Calcium POC WB Ioniz Calcium Albumin Globulin Albumin/Globulin Ratio Procalcitonin 0.10 H Urine Glucose (UA) >=1000 A Urine Occult Blood Small A Urine Mucus Few A Urine Opiates Screen Ur Amphetamines Screen 08/01/22 08/01/22 08/01/22 11:24 11:24 11:21 RBC Hgb Hct Immature Gran % (Auto) 2.0 H [place] # (Auto) 0.92 H Immature Gran # 0.21 H ABG Methemoglobin VBG Lactic Acid Carboxyhemoglobin POC Sodium 128 L POC Chloride 93 L Creatinine Glucose POC Glucose 676 H* Hemoglobin A1c Calcium POC WB Ioniz Calcium 1.08 L Albumin Globulin 3.9 H Albumin/Globulin Ratio Procalcitonin Urine Glucose (UA) Urine Occult Blood Urine Mucus Urine Opiates Screen Ur Amphetamines Screen 08/01/22 11:02 RBC Hgb Hct Immature Gran % (Auto) [place] # (Auto) Immature Gran # ABG Methemoglobin 0.3 L VBG Lactic Acid Carboxyhemoglobin 8.0 H POC Sodium POC Chloride Creatinine Glucose POC Glucose Hemoglobin A1c Calcium POC WB Ioniz Calcium Albumin Globulin Albumin/Globulin Ratio Procalcitonin Urine Glucose (UA) Urine Occult Blood Urine Mucus Urine Opiates Screen Ur Amphetamines Screen Meds: Medications Acetaminophen (Acetaminophen 325 Mg Tablet) 650 mg PO Q6HP PRN; Protocol PRN Reason: Per Pain Protocol/Fever > 101 Albuterol/Ipratropium (Ipratropium/Albuterol 3 Ml Ampul.Neb) 3 ml NEB Q4HRT PRN PRN Reason: Wheezing Dextrose (Dextrose 50% 50 Ml Vial) 0 ml IV UD PRN PRN Reason: Per Sliding Scale Diagnostic Test (Pha) (Accu-Chek 1 Each Strip) 1 each FS ACHS [facility] Last Admin: 08/02/22 10:21 Dose: 1 each Docusate Sodium (Docusate Sodium 100 Mg Capsule) 100 mg PO BID [facility] Last Admin: 08/02/22 10:12 Dose: Not Given Glucose (Dextrose 31 Gm Oral.Susp) 15 gm PO PRN PRN PRN Reason: Hypoglycemia Hydromorphone HCl (Hydromorphone 0.5 Mg/0.5 Ml Syringe) 0.5 mg IV Q2HP PRN; Protocol PRN Reason: Per Pain Protocol Last Admin: 08/01/22 17:06 Dose: 0.5 mg Sodium Chloride (Sodium Chloride 0.9%) 1,000 mls @ 100 mls/hr IV .Q10H [facility] Last Admin: 08/02/22 04:11 Dose: 100 mls/hr Piperacillin Sod/Tazobactam (Sod 3.375 gm/ Dextrose) 50 mls @ 100 mls/hr IV Q6H [facility]; Protocol Last Admin: 08/02/22 05:59 Dose: 100 mls/hr Insulin Glargine (Insulin Glargine, Human 1 Unit/0.01 Ml) 10 unit SQ HS [facility] Last Admin: 08/01/22 21:36 Dose: 10 units Insulin Human Lispro (Insulin Lispro 1 Unit/0.01 Ml Unit) 0 unit SQ Q6 [facility]; Protocol Last Admin: 08/02/22 06:14 Dose: 3 units Ondansetron HCl (Ondansetron 4 Mg/2 Ml Vial) 4 mg IV Q6HP PRN PRN Reason: Nausea And Vomiting Oxycodone HCl (Oxycodone Hcl 5 Mg Tablet) 10 mg PO Q4HP PRN; Protocol PRN Reason: Per Pain Protocol Senna (Sennosides 1 Tablet) 2 tab PO HS [facility] Last Admin: 08/01/22 21:27 Dose: Not Given Sodium Chloride (0.9 % Sodium Chloride 10 Ml Syringe) 10 ml IV Q8 [facility] Last Admin: 08/02/22 10:11 Dose: Not Given Trazodone HCl (Trazodone Hcl 50 Mg Tablet) 25 mg PO HSP PRN PRN Reason: Insomnia ABG Interpretation ABG results: 08/01/22 11:02 ABG Methemoglobin 0.3 L VBG pH 7.34 VBG pCO2 47.2 VBG pO2 27.5 VBG HCO3 24.7 VBG Total CO2 26.1 VBG O2 Saturation 50.9 VBG Base Excess -2 A/P Assessment and plan (1) Osteomyelitis of toe of left foot: Status: Acute (2) Diabetic foot ulcer associated with type 2 diabetes mellitus: Status: Acute (3) Uncontrolled type 2 diabetes mellitus: Status: Acute (4) Methamphetamine abuse: Status: Acute Narrative A/P Narrative: Assessment and Plans: 1. Diabetic foot ulcer with osteomyelitis, left 2nd toe: Inpatient med surg Dr. Perez consulted for surgical management NPO with NS@100cc/hr Serial lactic acid 1.6 Procalcitonin level MRSA screening negative, d/c Vancomycin Blood culture, no growth to date Intra-operative wound culture pending cbc w/ auto diff in the morning to trend WBC Continue Zosyn Tylenol Oxycodone Dilaudid Physical therapy after surgery 2. Right posterior lower leg unstageable ulcers: Dr. Perez consulted for surgical management Rest of the management, please see above #1 3. Uncontrolled T2DM with hyperglycemia: HgA1c 13.6 Hold metformin Insulin Lispro SSI q6hr while NPO and AC HS when patient is being fed Insulin Lantus 10 unit HS Hypoglycemia protocol NPO with NS@100cc/hr, resume CC diet after surgery adult educator referral 4. Methamphetamine abuse: Urine drug screen positive for opioid and methamphetamine GI ppx: not currently indicated DVT ppx: SCDs for now pre-operatively Code status: Full Prognosis: guarded Disposition: inpatient med surg; PT Time Spent With Patient Time: Total time spent is greater than 50% in coordination of care (as documented) at patient's floor/unit and/or counseling patient: Subsequent: Total time with patient: 35 - 49 minutes QUALITY Stroke Symptom Onset Unknown: No VTE Deep Vein Thrombosis/Pulmonary Embolism Present on Admission: No
[2022-08-02] MEDS: VANCOMYCIN 1,500 MG in 0.9 % SODIUM CHLORIDE 500 ML IV SCH (11:56)
[2022-08-02] MEDS: HYDROmorphone 0.5 MG/0.5 ML SYRINGE IV PRN (13:12)
[2022-08-02] MEDS: INSULIN GLARGINE, HUMAN 1 UNIT/0.01 ML SQ SCH (22:13)
[2022-08-02] MEDS: SENNOSIDES 1 TABLET PO SCH (22:23)
[2022-08-03] MEDS: PIPERACILLIN SODIUM/TAZOBACTAM 3.375 GM in DEXTROSE 5% IN WATER 50 ML IV SCH ×3 (00:14→11:55)
[2022-08-03] MEDS: 0.9 % SODIUM CHLORIDE 1,000 ML IV SCH ×2 (03:29→08:32)
[2022-08-03] MEDS: 0.9 % SODIUM CHLORIDE 10 ML SYRINGE IV SCH (06:13)
[2022-08-03 08:24] LABS: Basophils # (Auto) 0.07 K/mcL (0.00-0.30); Basophils % (Auto) 0.8 % (0.0-2.0); Eosinophils # (Auto) 0.26 K/mcL (0.00-0.70); Eosinophils % (Auto) 2.9 % (0.0-7.0); Hematocrit 40.2 % (40.1-51.0); Hemoglobin 13.5 g/dL (13.7-17.5); Lymphocytes # (Auto) 2.23 K/mcL (1.50-4.80); Lymphocytes % (Auto) 24.7 % (15.5-49.0); Mean Cell Volume 84.1 fL (80.0-100.0); Mean Corpuscular HGB Conc 33.6 g/dL (31.0-36.0); Mean Platelet Volume 10.5 fL (8.8-12.5); Monocytes # (Auto) 0.79 K/mcL (0.10-0.90); Monocytes % (Auto) 8.7 % (1.0-12.0); Neutrophils % (Auto) 61.1 % (38.0-78.0); Platelet Count 288 K/mcL (140-440); RBC 4.78 M/mcL (4.63-6.08); Red Cell Distribution Width 12.3 % (11.5-14.5)
[2022-08-03] MEDS: DOCUSATE SODIUM 100 MG CAPSULE PO SCH (08:32)
[2022-08-03] MEDS: INSULIN LISPRO 1 UNIT/0.01 ML UNIT SQ SCH ×2 (08:32→11:54)
[2022-08-03 08:54] LABS: ALT/SGPT 17 U/L (<40); AST/SGOT 19 U/L (<40); Albumin/Globulin Ratio 0.9 (1.0-2.3); Alkaline Phosphatase 100 U/L (39-117); Bilirubin,Total 0.4 mg/dL (0.1-1.0); Blood Urea Nitrogen 8 mg/dL (6-20); Carbon Dioxide 26 mmol/L (22-30); Chloride 100 mmol/L (96-108); Globulin 3.3 gm/dL (2.2-3.7); Glomerular Filtration Rate 117; Glucose 177 mg/dL (70-105)
--- NOTE | 2022-08-03 11:00 | Orthopedic Progress Note ---
SUBJECTIVE Subjective Patient information: Note initiated : 08/03/22 at 10:57 am Service Date, if different from initiated Date: [] Patient: Sean Mcdonald 51 y/o M admitted on 08/01/22 for Left 2nd Toe Amputation. Chief Complaint: [left second toe infection] Principal diagnosis: osteomyelitis left second toe Constitutional Vitals: Vital Signs Temp Pulse Resp BP Pulse Ox O2 Del Method 98.6 F 88 16 105/60 97 Room Air 08/03/22 04:00 08/03/22 04:00 08/03/22 04:00 08/03/22 04:00 08/03/22 04:00 08/03/22 04:00 Period Temp Pulse Resp BP Sys/Matta Pulse Ox O2 Del Method O2 Flow Rate Last 24 Hr 98.1 F-98.8 F 77-90 14-16 102-135/60-84 96-100 Room Air-Room Air Intake and Output 08/02/22 08/03/22 08/03/22 19:59 03:59 11:59 Intake Total 1100 1050 Output Total 1125 900 Balance 1100 -75 -900 Weight 284 lb 5 oz 284 lb 4 oz Intake & Output: Intake & Output 08/02/22 08/03/22 08/03/22 19:59 03:59 11:59 Intake Total 1100 1050 Output Total 1125 900 Balance 1100 -75 -900 Weight 284 lb 5 oz 284 lb 4 oz Intake: IV 1100 1050 Sodium Chloride 0.9% 1,000 ml @ 1000 1000 100 mls/hr IV .Q10H DAINA Rx#: [id number] Zosyn 3.375 gm In Dextrose 5% 100 50 in Water 50 ml @ 100 mls/hr IV Q6H DAINA Rx#:[id number] Output: Void Amount 1125 900 Other: Meal Dinner Percent of Meal Consumed 100% Feeding Ability Independent Urine Appearance Clear Urine Color Yellow Yellow Urine Odor Normal Normal Stool Size Moderate Stool Color Brown Stool Consistency Soft Formed # Voids 1 # Bowel Movements 1 OBJ DATA Labs 08/03/22 06:13 08/03/22 06:13 Labs: Abnormal Lab Results 08/03/22 08/03/22 08/03/22 09:00 06:13 06:13 RBC Hgb 13.5 L Hct Immature Gran % (Auto) 1.8 H [place] # (Auto) Immature Gran # 0.16 H ABG Methemoglobin VBG Lactic Acid Carboxyhemoglobin POC Sodium POC Chloride Creatinine 0.6 L Glucose 177 H POC Glucose Hemoglobin A1c Calcium 8.0 L POC WB Ioniz Calcium Albumin 3.0 L Globulin Albumin/Globulin Ratio 0.9 L Procalcitonin Urine Glucose (UA) Urine Occult Blood Urine Mucus Vancomycin Trough < 4.0 L Urine Opiates Screen Ur Amphetamines Screen 08/02/22 08/02/22 08/01/22 05:51 05:51 15:00 RBC 4.51 L Hgb 12.9 L Hct 38.0 L Immature Gran % (Auto) 1.8 H [place] # (Auto) 0.92 H Immature Gran # 0.17 H ABG Methemoglobin VBG Lactic Acid Carboxyhemoglobin POC Sodium POC Chloride Creatinine 0.6 L Glucose 143 H POC Glucose Hemoglobin A1c 13.6 H Calcium 8.0 L POC WB Ioniz Calcium Albumin 2.8 L Globulin Albumin/Globulin Ratio 0.8 L Procalcitonin Urine Glucose (UA) Urine Occult Blood Urine Mucus Vancomycin Trough Urine Opiates Screen Suspect positive A Ur Amphetamines Screen Suspect positive A 08/01/22 08/01/22 08/01/22 15:00 11:24 11:24 RBC Hgb Hct Immature Gran % (Auto) [place] # (Auto) Immature Gran # ABG Methemoglobin VBG Lactic Acid 3.9 H* Carboxyhemoglobin POC Sodium POC Chloride Creatinine Glucose POC Glucose Hemoglobin A1c Calcium POC WB Ioniz Calcium Albumin Globulin Albumin/Globulin Ratio Procalcitonin 0.10 H Urine Glucose (UA) >=1000 A Urine Occult Blood Small A Urine Mucus Few A Vancomycin Trough Urine Opiates Screen Ur Amphetamines Screen 08/01/22 08/01/22 08/01/22 11:24 11:24 11:21 RBC Hgb Hct Immature Gran % (Auto) 2.0 H [place] # (Auto) 0.92 H Immature Gran # 0.21 H ABG Methemoglobin VBG Lactic Acid Carboxyhemoglobin POC Sodium 128 L POC Chloride 93 L Creatinine Glucose POC Glucose 676 H* Hemoglobin A1c Calcium POC WB Ioniz Calcium 1.08 L Albumin Globulin 3.9 H Albumin/Globulin Ratio Procalcitonin Urine Glucose (UA) Urine Occult Blood Urine Mucus Vancomycin Trough Urine Opiates Screen Ur Amphetamines Screen 08/01/22 11:02 RBC Hgb Hct Immature Gran % (Auto) [place] # (Auto) Immature Gran # ABG Methemoglobin 0.3 L VBG Lactic Acid Carboxyhemoglobin 8.0 H POC Sodium POC Chloride Creatinine Glucose POC Glucose Hemoglobin A1c Calcium POC WB Ioniz Calcium Albumin Globulin Albumin/Globulin Ratio Procalcitonin Urine Glucose (UA) Urine Occult Blood Urine Mucus Vancomycin Trough Urine Opiates Screen Ur Amphetamines Screen Meds: Medications Acetaminophen (Acetaminophen 325 Mg Tablet) 650 mg PO Q6HP PRN; Protocol PRN Reason: Per Pain Protocol/Fever > 101 Albuterol/Ipratropium (Ipratropium/Albuterol 3 Ml Ampul.Neb) 3 ml NEB Q4HRT PRN PRN Reason: Wheezing Dextrose (Dextrose 50% 50 Ml Vial) 0 ml IV UD PRN PRN Reason: Per Sliding Scale Diagnostic Test (Pha) (Accu-Chek 1 Each Strip) 1 each [facility] Last Admin: 08/03/22 08:31 Dose: 1 each Docusate Sodium (Docusate Sodium 100 Mg Capsule) 100 mg PO BID [facility] Last Admin: 08/03/22 08:32 Dose: Not Given Glucose (Dextrose 31 Gm Oral.Susp) 15 gm PO PRN PRN PRN Reason: Hypoglycemia Hydromorphone HCl (Hydromorphone 0.5 Mg/0.5 Ml Syringe) 0.5 mg IV Q2HP PRN; Pro tocol PRN Reason: Per Pain Protocol Last Admin: 08/02/22 13:12 Dose: 0.5 mg Sodium Chloride (Sodium Chloride 0.9%) 1,000 mls @ 100 mls/hr IV .Q10H [facility] Last Admin: 08/03/22 08:32 Dose: Not Given Piperacillin Sod/Tazobactam (Sod 3.375 gm/ Dextrose) 50 mls @ 100 mls/hr IV Q6H [facility]; Protocol Last Admin: 08/03/22 06:13 Dose: 100 mls/hr Insulin Glargine (Insulin Glargine, Human 1 Unit/0.01 Ml) 10 unit SQ [facility] Last Admin: 08/02/22 22:13 Dose: 10 units Insulin Human Lispro (Insulin Lispro 1 Unit/0.01 Ml Unit) 0 unit SQ [facility]; Protocol Last Admin: 08/03/22 08:32 Dose: 9 unit Ondansetron HCl (Ondansetron 4 Mg/2 Ml Vial) 4 mg IV Q6HP PRN PRN Reason: Nausea And Vomiting Oxycodone HCl (Oxycodone Hcl 5 Mg Tablet) 10 mg PO Q4HP PRN; Protocol PRN Reason: Per Pain Protocol Senna (Sennosides 1 Tablet) 2 tab PO HS [facility] Last Admin: 08/02/22 22:23 Dose: Not Given Sodium Chloride (0.9 % Sodium Chloride 10 Ml Syringe) 10 ml IV Q8 [facility] Last Admin: 08/03/22 06:13 Dose: Not Given Trazodone HCl (Trazodone Hcl 50 Mg Tablet) 25 mg PO HSP PRN PRN Reason: Insomnia ABG Interpretation ABG results: 08/01/22 11:02 ABG Methemoglobin 0.3 L VBG pH 7.34 VBG pCO2 47.2 VBG pO2 27.5 VBG HCO3 24.7 VBG Total CO2 26.1 VBG O2 Saturation 50.9 VBG Base Excess -2 A/P Assessment and plan (1) Osteomyelitis of toe of left foot: Status: Acute Plan Left second toe to be dressed with iodine, AMD gauze and tape - changed daily Patient to undergo amputation of the left second toe pending OR availability Friday08/05/22 Sepsis Sepsis Identified: No Narrative Plan of Treatment: Left second toe to be dressed with iodine, AMD gauze and tape - changed daily Patient to undergo amputation of the left second toe pending OR availability Friday08/05/22 Time Spent With Patient Time: Total time spent is greater than 50% in coordination of care (as documented) at patient's floor/unit and/or counseling patient:
--- NOTE | 2022-08-03 12:50 | Discharge Summary ---
Discharge Provider Provider IMPORTANT FOLLOW-UP INFORMATION FOR PCP: Patient information: Note initiated : 08/03/22 at 12:47 pm Service Date, if different from initiated Date: [] Patient: Sean Mcdonald 51 y/o M admitted on 08/01/22 for Left 2nd Toe Amputation. Chief Complaint: [] Date of admission: 08/01/22 15:39 Discharge date: 08/03/22 Primary care physician: PCP No Attending physician on admission: Robb Courtney Consults: 08/01/22 Consult to Physician [CONS] Stat Comment: Consulting Provider: Robb Courtney Reason For Exam: Physician to Consult 08/01/22 13:37 Consult to Physician [CONS] Stat Comment: Consulting Provider: Les Perez Reason For Exam: Physician to Consult Attending physician on discharge: Robb De Leon [facility] COURSE Hospital Course Hospital course: Mr. Mcdonald is a 51 year old M history of type 2 diabetes mellitus, IV drug use including methamphetamine, presenting with 3 to 4 weeks history of worsening left second toe swelling and pain. He also has noticed to continue swelling around the posterior aspect of his right lower leg as well. He does not remember having any associated trauma or injury or cut or puncture to any of those affected areas. He admits that he used IV drug use including methamphetamine with last use yesterday. He has a history of type 2 diabetes mellitus and is supposed to take metformin but he never takes it because he does not feel like it. Labs today significant for lack of leukocytosis with WBC 10.4. Blood glucose 676, serum bicarb 23, anion gap of 12, serum beta hydroxybutyrate pending. Lactic acid 3.9, procalcitonin level 0.10. MRSA screen pending. Foot x-ray showing severe osteomyelitis with near complete destruction of the distal phalanx of the second left toe. Admission request is called for diabetic foot with osteomyelitis of the left second toe with unstageable ulcer of the right lower leg. They were complicated by uncontrolled type 2 diabetes mellitus with hypercalcemia. 08/02: Patient has been afebrile overnight. MRSA screening negative. Blood culture no growth to date. WBC 9.7. Fasting glucose 158. A1c 13.6. Urine drug screen positive for opioids and methamphetamine. Patient is drowsy and sleepy this morning. He denies having any left toe pain at the moment. Patient has been n.p.o. since midnight in preparation for the surgery by Dr. Perez scratcher today. We will DC vancomycin while continuing IV fluid, Zosyn, and insulin therapy with Lantus 10 units at bedtime and high-dose sliding scale insulin every 6 hours while n.p.o. and AC HS after the surgery when patient can be fed. Physical therapy evaluation and treatment after surgery. 08/03: [facility]ader still had not confirmed time for OR for left second toe amputations. Patient was frustrated and he would want to be discharged and follow-up with scratcher in his office soon as possible. I would discharge the patient and I would wrote him prescription for oral antibiotics. Message left to scratcher office to call patient's as soon as possible. The patient also being instructed to call the scratcher office on Friday if he does not hear back from them. All questions answered prior to patient being physically discharged. Discharge diagnosis: diabetic foot ulcer with osteomyelitis Time Spent with Patient Time attestation: Total time spent providing and/or coordinating discharge services: Time spent: Greater than 30 minutes EXAM Constitutional Vitals: Temp Pulse Resp BP Pulse Ox O2 Del Method 36.8 C 74 16 122/73 97 Room Air 08/03/22 08:00 08/03/22 08:00 08/03/22 08:00 08/03/22 08:00 08/03/22 08:00 08/03/22 08:00 General appearance: cooperative and no acute distress Head Head exam: Present atraumatic and normocephalic Eye Eye exam: Present EOMI and PERRL ENT ENT exam: Present mucous membranes moist, normal exam and normal external ear exam Neck Neck exam: Present normal inspection; Absent lymphadenopathy, tenderness or thyromegaly Respiratory Respiratory exam: Absent accessory muscle use, respiratory distress or wheezes Cardiovascular Cardiovascular exam: Present normal rate and rhythm; Absent JVD GI/Abdominal GI/Abdominal exam: Present normal bowel sounds and soft; Absent organomegaly or tenderness Rectal Rectal exam: Present deferred Extremities Exam Extremities exam: Present full ROM, normal capillary refill and tenderness; Absent normal inspection Additional comments: Swelling, erythema, tenderness, warmth, drainage of the left 2nd toe. Unstageable ulcers with eschar posterior aspect of right lower leg Neurological Exam Neurological exam: Present alert, CN II-XII intact and oriented X3; Absent motor sensory deficit Psychiatric Psychiatric exam: Present normal affect and normal mood; Absent anxious or depressed Skin Skin exam: Present dry and erythema; Absent intact Additional comments: Swelling, erythema, tenderness, warmth, drainage of the left 2nd toe. Unstageable ulcers with eschar posterior aspect of right lower leg Discharge Data Data Completed and Pending Labs on day of discharge: Labs from last 24 hours 08/03/22 08/03/22 08/03/22 09:00 06:13 06:13 WBC 9.0 RBC 4.78 Hgb 13.5 L Hct 40.2 MCV 84.1 MCH 28.2 MCHC 33.6 RDW 12.3 Plt Count 288 MPV 10.5 Immature Gran % (Auto) 1.8 H Neut % (Auto) 61.1 Lymph % (Auto) 24.7 [place] % (Auto) 8.7 Eos % (Auto) 2.9 Baso % (Auto) 0.8 Lymph # (Auto) 2.23 [place] # (Auto) 0.79 Eos # (Auto) 0.26 Baso # (Auto) 0.07 Immature Gran # 0.16 H Absolute Neutrophils 5.52 Sodium 135 Potassium 3.7 Chloride 100 Carbon Dioxide 26 Anion Gap 9.0 BUN 8 Creatinine 0.6 L GFR Calculation 117 Glucose 177 H Calcium 8.0 L Total Bilirubin 0.4 AST 19 ALT 17 Alkaline Phosphatase 100 Total Protein 6.3 Albumin 3.0 L Globulin 3.3 Albumin/Globulin Ratio 0.9 L Vancomycin Trough < 4.0 L Preliminary micro results at discharge 08/01/22 11:10 Blood Culture - Preliminary Blood 08/01/22 11:02 Blood Culture - Preliminary Blood Discharge Plan Patient/Caregiver Discharge Instructions Activity: increase activity as tolerated Diet: Consistent Carbohydrate Prescriptions: New oxycodone 5 mg Tablet 10 mg PO Q4HP PRN (Reason: Per Pain Protocol) Qty: 10 0RF amoxicillin-pot clavulanate [Augmentin] 500-125 mg tablet 1 tab PO BID Qty: 20 0RF Continued metformin 500 mg tablet 500 mg PO QDAY Qty: 30 0RF Rx Instructions: Start 01/23/2022 Follow Up Plan Follow up with: No,PCP [Primary Care Provider] - Patient Disposition: Home, Self-Care Plan of Treatment: Left second toe to be dressed with iodine, AMD gauze and tape - changed daily Patient to undergo amputation of the left second toe pending OR availability Friday08/05/22 Rehab Potential: Good I certify that the patient requires SNF services: No Overall status at discharge: patient is not back to baseline Discharge Orders: Discharge Order (Routine); Ordered 08/03/22 Ordered By: Robb HENRIQUEZ VTE Deep Vein Thrombosis/Pulmonary Embolism Present on Admission: No
--- NOTE | 2022-08-04 21:23 | EKG ---
[facility] Test Date: 2022-08-01 Pat Name: Sean Mcdonald Department: ED Room: Gender: Male [employer] Operator: AUGUSTUS : 1970 Requested By: Eze Reyes Order Number: [id number] Reading MD: Sean Huang Measurements Intervals [place] Rate: 95 P: 22 ID: [id number] QRS: -3 QRSD: 91 T: 35 QT: 346 QTc: 435 Interpretive Statements Sinus rhythm Low voltage, precordial leads Electronically Signed On 08-04-2022 21:22:59 PST by Sean Huang /[id number]
[2022-08-14 16:43] LABS: Opiate Confirmation Positive
== END 2022-08-03 14:25 | disposition home or self-care (01) | DRG 638 ==
LOC: ED 10:24 → MEDSUR 15:39
PROVIDERS: ADMIT Internal Medicine; ATTEND Internal Medicine